=== PATIENT | female | born 1965 | race Caucasian/White ===

== ENCOUNTER 2018-07-14 21:30 | Emergency (ER) | payer SELFPAY ==
[2018-07-14 21:43] VITALS: BP 143/91
[2018-07-14] MEDS ORDERED: Amoxicillin/Clavulanate TAB* 875 MG PO ONE ×2 (22:06)
--- NOTE | 2018-07-14 22:08 | UC ---
Throat Pain/Nasal Kvng HPI - HPI Summary HPI Summary: 52-year-old woman comes in to clinic with a chief complaint of green rhinorrhea sinus pressure and feeling ill for 2 weeks. Symptoms started out as a runny nose and slight sore throat 2 weeks ago. Time she started to develop sinus pressure and some foul smelling rhinorrhea. She does have a history of pneumonia and this evening she felt some chest pain. Started about 2 hours ago. The pain is worse with taking a deep breath and movement. She has no pain now. Pain did not radiate she was not nauseous or sweaty or short of breath with it. She has hypertension but does not have I cholesterol or diabetes. She swims for exercise and has not had any chest pain with swimming. No calf pain or pedal edema. No abdominal pain. - History of Current Complaint Chief Complaint: UCGeneralIllness Stated Complaint: CHEST CONGESTIN/DISCOMFORT Time Seen by Provider: 07/14/18 21:38 Hx Last Menstrual Period: 3 MONTHS AGO. HAS STARTED MENOPAUSE Pain Intensity: 3 - Allergies/Home Medications Allergies/Adverse Reactions: Allergies Allergy/AdvReac Type Severity Reaction Status Date / Time No Known Allergies Allergy Verified 10/11/15 19:06 Home Medications: Home Medications GuaiFENesin DM* [Robitussin DM*] 5 ml PO ONCE 07/14/18 [History Confirmed ] Penicillin VK 500 MG TAB(NF) [Penicillin VK 500 mg Tab] 500 mg PO ONCE 07/14/18 [History Confirmed 07/14/18] PMH/Surg Hx/FS Hx/Imm Hx Previously Healthy: Yes Cardiovascular History: Hypertension - Surgical History Surgical History: Yes Surgery Procedure, Year, and Place: c-sections x2, tonsilectomy. NASAL SURGERY. - Family History Known Family History: Positive: None - Social History Alcohol Use: Rare Substance Use Type: None Smoking Status (MU): Never Smoked Tobacco - Immunization History Most Recent Influenza Vaccination: [id number] Most Recent Tetanus Shot: 2013 Review of Systems All Other Systems Reviewed And Are Negative: Yes Constitutional: Positive: Negative Skin: Positive: Negative Eyes: Positive: Negative ENT: Positive: Ear Ache, Nasal Discharge, Sinus Congestion, Sinus Pain/ Tenderness Respiratory: Negative: Shortness Of Breath Cardiovascular: Positive: Chest Pain Gastrointestinal: Positive: Negative Motor: Positive: Negative Neurovascular: Positive: Negative Musculoskeletal: Positive: Negative Neurological: Positive: Negative Psychological: Positive: Negative Is Patient Immunocompromised?: No Physical Exam Triage Information Reviewed: Yes Appearance: Well-Appearing, No Pain Distress, Well-Nourished Vital Signs: Initial Vital Signs Temp 99.4 F 07/14/18 21:33 Pulse 105 07/14/18 21:33 Resp 16 07/14/18 21:33 BP 143/91 07/14/18 21:33 Pulse Ox 99 07/14/18 21:33 Vital Signs Reviewed: Yes Eye Exam: Normal Eyes: Positive: Conjunctiva Clear ENT: Positive: Pharyngeal erythema, Nasal congestion, Nasal drainage, TM dull - B/L, Uvula midline Neck exam: Normal Neck: Positive: Supple, Nontender Respiratory: Positive: Chest non-tender, Lungs clear, Normal breath sounds, No respiratory distress Cardiovascular: Positive: RRR Abdomen Description: Positive: Nontender, Soft Bowel Sounds: Positive: Present Musculoskeletal Exam: Normal Musculoskeletal: Positive: Strength Intact, ROM Intact, No Edema, Other: - NO CALF TENDERNESS Neurological Exam: Normal Neurological: Positive: Alert, Muscle Tone Normal Psychological Exam: Normal Psychological: Positive: Age Appropriate Behavior Skin Exam: Normal Diagnostics - EKG Cardiac Rate: NL - AT 21:43 Cardiac Rhythm: Sinus: Normal - 91 BPM Ectopy: None ST Segment: Normal Throat Pain/Nasal Course/Dx - Course Course Of Treatment: By symptoms and examination the patient has a sinusitis. We will treat with Augmentin and she can use saline nasal spray and over-the- counter medications. We discussed her chest pain and her EKG. Do not see any ischemic changes on EKG. The pain was mid sternal bleeding with taking a deep breath. She is not nauseous sweaty or short of breath with it. She exercises by swimming without any chest pain. She has no calf tenderness or swelling. We discussed the possibility of deep venous from fibrosis and pulmonary embolus. I did not hear consolidation in the chest so I do does not clinically find pneumonia at this time. We discussed going to the emergency department for further evaluation of her chest pain. At this time she declined. She agreed that if she had any more chest pain that she would go to the emergency department for further evaluation. - Differential Dx/Diagnosis Provider Diagnosis: Sinusitis, Chest pain Discharge - Sign-Out/Discharge Documenting (check all that apply): Patient Departure All imaging exams completed and their final reports reviewed: No Studies - Discharge Plan Condition: Stable Disposition: HOME Prescriptions: Amoxicillin/Clavulanate TAB* [Augmentin TAB 875*] 875 mg PO BID #18 tab Patient Education Materials: Chest Pain (ED), Sinusitis (ED) Referrals: Brie Yi PA [Primary Care Provider] - Additional Instructions: FOLLOW UP WITH YOUR DOCTOR. GO TO THE EMERGENCY DEPARTMENT FOR ANY WORSENING OF YOUR CONDITION; CHEST PAIN, SHORTNESS OF BREATH, YOU FEEL ILL OR QUESTIONS OR CONCERNS. - Billing Disposition and Condition Condition: STABLE Disposition: Home
== END 2018-07-14 22:16 | disposition home or self-care (01) ==
LOC: UCCORT 21:30
DX: J32.9 Chronic sinusitis, unspecified (principal); R07.9 Chest pain, unspecified; I10 Essential (primary) hypertension
CPT/HCPCS: 93005; 99213; A9270-GY; G0463